=== PATIENT | male | born 1995 | race American Indian/Alaskan Native ===

== ENCOUNTER 2017-01-19 15:45 | Emergency (ER) | payer SELFPAY ==
[2017-01-19 16:39] VITALS: BP 117/80
== END 2017-01-19 19:05 | disposition left against medical advice (07) ==
LOC: ED 15:45
DX: S99.911A Unspecified injury of right ankle, initial encounter (principal); Z72.0 Tobacco use; Z91.018 Allergy to other foods; X58.XXXA Exposure to other specified factors, initial encounter; Y93.67 Activity, basketball; Y99.9 Unspecified external cause status; Y92.89 Other specified places as the place of occurrence of the external cause; Z53.21 Procedure and treatment not carried out due to patient leaving prior to being seen by health care provider

== ENCOUNTER 2017-05-25 18:16 | Emergency (ER) | payer SELFPAY ==
[2017-05-25 18:22] VITALS: BP 119/77
[2017-05-25] MEDS ORDERED: TORADOL IM ONE (21:14)
--- NOTE | 2017-05-25 21:55 | XRay Report ---
FINAL REPORT EXAM: XR ANKLE 3+V RT HISTORY: Fell and injured right ankle TECHNIQUE: AP, lateral, and oblique views of the right ankle PRIORS: None. FINDINGS: There is no evidence for acute fracture or dislocation. Mild soft tissue swelling over the lateral malleolus is seen. No radiopaque foreign bodies are seen. The ankle mortise is intact. Bony mineralization is normal and joint spaces are maintained. IMPRESSION: No acute bony abnormality noted. Mild soft tissue swelling over the lateral malleolus.
--- NOTE | 2017-05-25 22:21 | Emergency Department Report ---
Entered by SAMANTHA ALAN, acting as scribe for ROME FINCH NP. ED Lower Extremity HPI - General Chief Complaint: Extremity Injury, Upper Stated Complaint: RT ANKLE INJURY Source: patient Mode of arrival: Ambulatory Limitations: Physical Limitation - History of Present Illness Initial Comments: This is a 22 y/o male with no significant PMHx presents to the ED c/o right ankle pain that began today 30 min. [employer]. Patient states he was playing basketball and subsequently twisted his right ankle invertedly. Rates pain a 10/ 10 in severity, which he describes as sharp in quality. Aggravated with movement and weight bearing, and alleviated with immobilization. Associated right ankle swelling, but he denies numbness and tingling. Denies any trauma. Denies CP, SOB, fever, chills, headache, stiff neck. MD Complaint: ankle injury (right) Onset/Timin -: This evening Injury: Ankle: Right Type of Injury: inversion Place: street/outdoors Severity: severe Severity scale (0 -10): 10 Improves With: immobilization Worsens With: weight bearing, movement, palpation Context: other (playing basketball) Associated Symptoms: swelling, able to partially bear weight, ambulatory. denies: snap/pop sensation, numbness, tingling - Related Data Previous Rx's Medication Instructions Recorded Last Taken Type Ibuprofen [Motrin 600 MG tab] 600 mg PO Q8H PRN #30 tablet 05/25/17 Unknown Rx Allergies Allergy/AdvReac Type Severity Reaction Status Date / Time pollen extracts AdvReac Itching Verified 05/25/17 18:20 ED Review of Systems Comment: All other systems reviewed and negative Constitutional: denies: chills, diaphoresis, fever, weakness Eyes: denies: eye pain, eye discharge, vision change ENT: denies: ear pain, throat pain Respiratory: denies: cough, shortness of breath, wheezing Cardiovascular: denies: chest pain, palpitations Endocrine: no symptoms reported Gastrointestinal: denies: abdominal pain, nausea, vomiting, diarrhea Musculoskeletal: joint swelling (right ankle), myalgia (right ankle pain). denies: back pain, arthralgia Skin: denies: rash, lesions Neurological: denies: headache, weakness, paresthesias Hematological/Lymphatic: denies: easy bleeding, easy bruising ED Past Medical Hx - Past Medical History Previous Medical History?: No - Surgical History Past Surgical History?: No - Social History Smoking Status: Current Every Day Smoker Substance Use Type: Alcohol - Medications Home Medications: Home Medications Medication Instructions Recorded Confirmed Last Taken Type Ibuprofen [Motrin 600 MG tab] 600 mg PO Q8H PRN #30 tablet 05/25/17 Unknown Rx ED Physical Exam - General Limitations: Physical Limitation General appearance: alert, in no apparent distress - Head Head exam: Present: atraumatic, normocephalic, normal inspection - Eye Eye exam: Present: normal appearance, PERRL, EOMI. Absent: scleral icterus, conjunctival injection, nystagmus, periorbital swelling, periorbital tenderness Pupils: Present: normal accommodation - ENT ENT exam: Present: normal exam, normal orophraynx, mucous membranes moist, TM's normal bilaterally, normal external ear exam - Neck Neck exam: Present: normal inspection, full ROM. Absent: tenderness, meningismus, lymphadenopathy, thyromegaly - Respiratory Respiratory exam: Present: normal lung sounds bilaterally. Absent: respiratory distress, wheezes, rales, rhonchi, stridor, chest wall tenderness, accessory muscle use, decreased breath sounds, prolonged expiratory - Cardiovascular Cardiovascular Exam: Present: regular rate, normal rhythm, normal heart sounds. Absent: bradycardia, tachycardia, irregular rhythm, systolic murmur, diastolic murmur, rubs, gallop - GI/Abdominal GI/Abdominal exam: Present: soft, normal bowel sounds. Absent: distended, tenderness, guarding, rebound, rigid, diminished bowel sounds - Rectal Rectal exam: Present: deferred - Extremities Exam Extremities exam: Present: full ROM (limited and painful ROM to right ankle), tenderness (lateral right ankle), normal capillary refill, joint swelling ( lateral right ankle). Absent: pedal edema, calf tenderness - Expanded Lower Extremity Exam Right Hip exam: Present: normal inspection, full ROM, external rotation, internal rotation, pelvic stability. Absent: tenderness, swelling, abrasion, laceration , ecchymosis, deformity, crepidus, dislocation, erythema, shortening Upper Leg exam: Present: normal inspection, full ROM. Absent: tenderness, swelling, abrasion, laceration, ecchymosis, deformity, crepidus, dislocation, erythema Knee exam: Present: normal inspection, full ROM, full knee extension. Absent: tenderness, swelling, abrasion, laceration, ecchymosis, deformity, crepidus, dislocation, erythema, effusion, pain w/ pronation/supination, posterior draw sign, pain/laxity with valgus, pain/laxity with varus Lower Leg exam: Present: normal inspection, full ROM. Absent: tenderness, swelling, abrasion, laceration, ecchymosis, deformity, crepidus, dislocation, erythema, palpable cord, Nadia's sign Ankle exam: Present: full ROM (limited and painful ROM to right ankle), tenderness (lateral right ankle), swelling (lateral right ankle). Absent: abrasion, laceration, ecchymosis, deformity, crepidus, dislocation, erythema, anterior draw sign Foot/Toe exam: Present: normal inspection, full ROM. Absent: tenderness, swelling, abrasion, laceration, ecchymosis, deformity, crepidus, dislocation, erythema, amputation, puncture wound, foreign body, calcaneal tenderness, tenderness at base of 5th metatarsal, nail avulsion, subungual hematoma Neuro vascular tendon exam: Present: no vascular compromise. Absent: pulse deficit, abnormal cap refill, motor deficit, sensory deficit, tendon deficit, extremity cold to touch, pallor, abnormal 2-point discrimination, decreased fine /light touch, foot drop, peroneal nerve deficit, significant pain with passive ROM of distal joint Gait: Positive: observed and limited by pain 1 - swelling - Back Exam Back exam: Present: normal inspection, full ROM. Absent: tenderness, CVA tenderness (R), CVA tenderness (L), muscle spasm, paraspinal tenderness, vertebral tenderness, rash noted - Neurological Exam Neurological exam: Present: alert, oriented X3, CN II-XII intact, abnormal gait (unable to bear weight on right ankle), reflexes normal. Absent: normal gait, motor sensory deficit - Psychiatric Psychiatric exam: Present: normal affect, normal mood - Skin Skin exam: Present: warm, dry, intact. Absent: rash ED Course Vital Signs 05/25/17 18:20 Temperature 98.3 F Pulse Rate 71 Respiratory 20 Rate Blood Pressure 119/77 O2 Sat by Pulse 100 Oximetry - Reevaluation(s) Reevaluation #1: 05/25/17 21:20 Patient is able to speak in full sentences with no signs of distress noted. ED Lower Extremity MDM - Medical Decision Making ED course; this is a 22 male that presents with left ankle sprain 1- patient was examined myself. Patient received Toradol 60 mg IM for pain. X- ray has been obtained with negative findings of fracture or abnormalities. There are no signs of any deformities. Patient was notified of x-ray findings with no further questions noted by the patient. 2- patient was started to rest, elevate and ice extremity pain 3- patient received Yan wrap and crutches at discharge. 4- patient was instructed to follow-up with Dr. Contreras in 3-5 days or symptoms such as numbness, tingling, fever, chills, nausea or vomiting return to the emergency room as soon as possible. 5- At time time of discharge, the patient does not seem toxic or ill in appearance. No acute signs of distress noted. Patient agrees to discharge treatment plan of care. No further questions noted by the patient. ED Disposition Clinical Impression: Right ankle sprain Qualifiers: Encounter type: initial encounter Involved ligament of ankle: unspecified ligament Qualified Code(s): S93.401A - Sprain of unspecified ligament of right ankle, initial encounter Disposition: TO HOME OR SELFCARE Is pt being admited?: No Does the pt Need Aspirin: No Condition: Stable Instructions: Ankle Sprain (ED), Ibuprofen (By mouth), RICE Therapy (ED) Additional Instructions: follow-up with Dr. Contreras in 3-5 days or symptoms such as numbness, tingling, fever, chills, nausea or vomiting return to the emergency room as soon as possible. Rest, elevate, ice extremity. Prescriptions: Ibuprofen [Motrin 600 MG tab] 600 mg PO Q8H PRN #30 tablet PRN Reason: Pain Referrals: PRIMARY CAREMD [Primary Care Provider] - 3-5 Days JULITA CONTRERAS MD [Staff Physician] - 3-5 Days [facility] [Outside] - 3-5 Days [facility] [Outside] - 3-5 Days Forms: Work/School Release Form(ED) This documentation as recorded by the DAYANNA padilla JASMINE,accurately reflects the service I personally performed and the decisions made by me,ROME FINCH, CHASITY.
== END 2017-05-25 22:35 | disposition home or self-care (01) ==
LOC: ED 18:16
DX: S93.401A Sprain of unspecified ligament of right ankle, initial encounter (principal); F17.210 Nicotine dependence, cigarettes, uncomplicated; Z88.8 Allergy status to other drugs, medicaments and biological substances; X58.XXXA Exposure to other specified factors, initial encounter; Y93.67 Activity, basketball; Y92.89 Other specified places as the place of occurrence of the external cause; Y99.8 Other external cause status
CPT/HCPCS: 73610; 96372; 99283; J1885